=== PATIENT | female | born 1960 | race Caucasian/White ===

== ENCOUNTER 2022-08-23 15:20 | Inpatient (IN) | payer OTHER ==
[~2022-08-23] VITALS: Ht 165.1 cm; Wt 111.1 kg
[2022-08-26] MEDS ORDERED: EFFEXOR XR150 MG PO (14:57)
[2022-08-26] MEDS ORDERED: SYNTHROID50 MCG PO (14:57)
[2022-08-26] MEDS ORDERED: NORVASC5 MG PO (14:58)
[2022-08-26] MEDS ORDERED: EFFEXOR XR75 MG PO (14:58)
[2022-08-26] MEDS ORDERED: GLUMETZA500 MG PO (14:59)
[2022-08-26] MEDS ORDERED: CLONAZEPAM1 MG PO (14:59)
[2022-09-06] MEDS ORDERED: PEPCID AC20 MG PO (07:58)
[2022-09-06] MEDS ORDERED: TRAM1TAB98 PO (07:58)
[2022-09-06] MEDS ORDERED: INTEGRA F CAPS1 EACH PO (07:58)
== END 2022-09-06 11:19 | disposition home or self-care (01) | DRG 331 ==
LOC: O/R 09-02 07:00 → SURG 09-02 07:00 → SURH 09-02 10:15 → SURG 09-03 00:24
PROVIDERS: ADMIT Surgery; ATTEND Surgery
PROC: 07BB4ZZ Excision of Mesenteric Lymphatic, Percutaneous Endoscopic Approach (ICD-10-PCS; 2022-09-02)
PROC: 0DTF4ZZ Resection of Right Large Intestine, Percutaneous Endoscopic Approach (ICD-10-PCS; principal; 2022-09-02 12:30)
DX: C18.0 Malignant neoplasm of cecum (principal); D37.4 Neoplasm of uncertain behavior of colon; Z20.822 Contact with and (suspected) exposure to COVID-19